=== PATIENT | female | born 1940 | race Caucasian/White ===

== ENCOUNTER → 2017-01-02 | Outpatient (CLI) | payer MEDICARE, OTHER ==
[~2017-01-02] MED LIST: CARDI-OMEGA1000 MG PO; CARDURA 2MG2 MG PO; CARDURA4 MG PO; DOXAZOCIN; DYAZIDE 25 MG-31 CAP PO; FLONASE NASAL S16 GM NS; HALCION0.25 MG PO; K-DUR 2020 MEQ PO; LIPITOR 10MG10 MG PO; LOFIBRA54 MG PO; LOPRESSOR 550 MG/TAB PO; LOPRESSOR PO; LOPRESSOR100 MG PO; MAXZIDE-25MG TA1 TAB PO; MUCINEX D1 TER PO; PLAVIX 75MG TAB75 MG PO; SYNTHROID0.1 MG/TAB PO; SYNTHROID0.137 MG PO; TRIAMTERENE/HCT1 CAP PO; ZITHROMAX Z PA250 MG PO; ZITHROMAX500 M2 PO; ZOCOR 20MG20 MG PO
== END ==
LOC: COL.RAD 10:15 → EDBD 10:30 → COL.RAD 10:30
DX: M47.27 Other spondylosis with radiculopathy, lumbosacral region (principal); M43.17 Spondylolisthesis, lumbosacral region; M48.07 Spinal stenosis, lumbosacral region; M46.87 Other specified inflammatory spondylopathies, lumbosacral region

== ENCOUNTER 2018-02-18 14:26 | Inpatient (IN) | payer MEDICARE, OTHER ==
[~2018-02-18] VITALS: Ht 155 cm; Wt 69.9 kg
[2018-04-06] VITALS (12 sets, daily range): BP systolic 122–170; BP diastolic 59–84; PULSE 61–81; TEMP 97.4–98.2
[2018-04-06] MEDS ORDERED: NEURONTIN600 MG/TAB PO (05:37)
[2018-04-06] MEDS ORDERED: ASPI325T6 PO (06:59)
[2018-04-06] MEDS ORDERED: ROXICODONE 55 MG/TAB PO (06:59)
--- NOTE | 2018-04-06 09:49 | NUR ---
PATIENT TO ROOM 330 PER BED WITH JUDD ALTAMIRANO PACU GIVING REPORT @ [id number]. PT A/O X3, LUNGS COARSE WITH WET COUGH. BOWEL SOUNDS PRESENT. SCDS AND TEDS BILATERALLY. DRESSING TO RIGHT KNEE CDI WITH AQUACEL OVER INCISION. PT DENIES PAIN. IV TO PUMP TO LEFT HAND.
--- NOTE | 2018-04-06 11:55 | NUR ---
First visit from the adobe cq developer. No needs right now.
--- NOTE | 2018-04-06 13:06 | NUR ---
pt voided on bed hood 200 mls. pt not able to stand yet.
--- NOTE | 2018-04-06 18:36 | NUR ---
REPORT TO ALONDRA ALTAMIRANO.
--- NOTE | 2018-04-06 21:45 | NUR ---
Assessment completed. Patient is A&O x 4. VSS, on 4 liters of supplemental O2 via nasal cannula. Ranulfo wrap dressing to left knee is CDI with an ice pack maintained. Pedal pulses intact. BLE scds/RLE ami hose on. Encouraged ankle pumps. Patient has audible expiratory wheezing heard and fine crackles in the bases of the lungs, reported by day shift RN patient sounded the same on admission before surgery. Encouraged use of IS and patient was able to demonstrate use. Tolerating diet with no c/o nausea. Voiding with no difficulities. Up with assist x 2 with walker and gait belt to the edge of the bed to dangle. Denies any concerns or needs, call light is within reach.
[2018-04-07 03:03] VITALS: BP 152/64; PULSE 76; TEMP 101.6; TEMP 98.2; TEMP 99
[2018-04-07 05:57] LABS: HEMOGLOBIN 10.9 g/dl (12.5-16.0)
[2018-04-07 05:59] LABS: HEMATOCRIT 31.8 % (37.0-47.0)
[2018-04-07 08:22] VITALS: BP 101/51; PULSE 73; TEMP 98.8
[2018-04-07 11:45] VITALS: BP 122/46; PULSE 56; TEMP 98.7
--- NOTE | 2018-04-07 15:44 | NUR ---
SW attempted to met with patient multiple times today. She was in the bathroom, in therapy, or asleep. SW will attempt again.
[2018-04-07 16:02] VITALS: BP 143/62; PULSE 58; TEMP 98.7
--- NOTE | 2018-04-07 19:30 | NUR ---
Patient up to bathroom with TAX MANAGER CPA where she is continent of bladder. Patient ambulates with walker and gait belt and moves at a slow, steady pace. Patient requests PRN pain medication for pain in her left knee rated 5/10. Patient is alert and oriented, answers questions appropriately. Aquacel to left knee is CDI. Patient denies further needs at this time, call light within reach.
[2018-04-07 20:33] VITALS: BP 142/53; PULSE 68; TEMP 98.9
[2018-04-07 23:36] VITALS: BP 129/54; PULSE 60; TEMP 99.1
[2018-04-08 03:36] VITALS: BP 139/55; PULSE 62; TEMP 98.4
--- NOTE | 2018-04-08 05:49 | NUR ---
Patient rested well overnight. PRN pain medication administered at shift change has controlled pain overnight. Patient up with 1x assist and walker and ambulated to bathroom where she was continent of bladder. Left knee aquacel continues to be CDI. Patient denies further needs at this time, call light within reach.
[2018-04-08 06:06] LABS: HEMOGLOBIN 10.7 g/dl (12.5-16.0)
[2018-04-08 06:11] LABS: HEMATOCRIT 32.4 % (37.0-47.0)
--- NOTE | 2018-04-08 07:06 | NUR ---
Report from Flores NORMAN.
[2018-04-08 07:24] VITALS: BP 130/46; PULSE 61; TEMP 99
--- NOTE | 2018-04-08 08:35 | NUR ---
PT SITTING UP IN BED EATING BREAKFAST. DRESSING TO LEFT KNEE CDI. PT DENIES PAIN,N/V AND NO OTHER DISTRESS NOTED. LUNGS COARSE WITH COUGHING. ENCOURAGED IS AND PT IS TRYING TO BE COMPLIANT. PLAN ON POSSIBLE REHAB AT [facility] 04/09. MEDICAL ASSISTANT SECRETARY TO SET UP TRANSFER.
--- NOTE | 2018-04-08 09:58 | NUR ---
BENNIE met with patient to discuss discharge planning. Patient lives with her Del in [place]. Her PCP is Dr Richards and she obtains her medications from [facility]. Patient and family would like her to go to [facility]. BENNIE obtained a choice form and made the referral to Jossie at [facility]. BENNIE will continue to follow.
[2018-04-08 11:28] VITALS: BP 123/49; PULSE 63; TEMP 98.7
--- NOTE | 2018-04-08 12:22 | NUR ---
Follow up visit from the medical surgery nurse. No needs right now.
[2018-04-08 15:54] VITALS: BP 133/46; PULSE 68; TEMP 98.9
--- NOTE | 2018-04-08 18:54 | NUR ---
report to Lorrie ALTAMIRANO.
[2018-04-08 20:30] VITALS: BP 125/51; PULSE 66; TEMP 98.6
--- NOTE | 2018-04-08 21:00 | NUR ---
Assessment completed. Patient is A&O x 4, sitting in the chair at this time watching television. VSS, on room air. Reports minimal pain at this time, denies needing any pain medication. Aquacell dressing to left knee is CDI with a fresh ice pack applied to knee. Mild swelling noted in the left upper thigh. Pedal pulses intact. BLE ami hose on. Voiding with no difficulities. Reports she has not had a bowel movement, prn MOM given. Patient did not eat much for a meal this evening stated she was not hungry. INT to left hand. Will ambulate in the hallway this evening with staff. Call light is within reach.
--- NOTE | 2018-04-08 21:30 | NUR ---
Patient ambulated 100 [address] in [address] hallway with assist x 1 with walker and gait belt at this time, gait steady. Assisted with repositioning in bed and elevated left ankle with pillow and an ice pack to left knee. Denies any concerns.
[2018-04-09 00:53] VITALS: BP 131/54; PULSE 57; TEMP 98.1
[2018-04-09 05:05] VITALS: BP 130/78; PULSE 68; TEMP 98.2
[2018-04-09 06:04] LABS: HEMATOCRIT 30.4 % (37.0-47.0); HEMOGLOBIN 10.6 g/dl (12.5-16.0)
--- NOTE | 2018-04-09 06:32 | NUR ---
Patient has rested well through the night. VSS. Reports minimal pain this morning. Aquacell dressing to left knee remains CDI with an ice pack maitnained to knee. Up with standby assist through the night, gait remains steady. Denies any concerns or needs.
--- NOTE | 2018-04-09 06:51 | NUR ---
Report from Lorrie ALTAMIRANO.
[2018-04-09 08:17] VITALS: BP 139/55; PULSE 81; TEMP 98.2
--- NOTE | 2018-04-09 09:28 | NUR ---
PT UP TO RECLINER FOR BREAKFST. OUT TO [facility] FOR THERAPY. PLAN ON DISCHARGE TO [facility] FOR REHAB.
--- NOTE | 2018-04-09 09:47 | NUR ---
SW presented IM and verbally discussed the contents with the patient. Patient was agreeable and signed the form. Original placed in the chart. SW asked patient if there was anyone she would like contacted about her dc today. She reports they already know. Patient is discharging today to [facility] via wheelchair van at 11am for a medicare snf stay.
--- NOTE | 2018-04-09 12:15 | NUR ---
PT TO [facility] AT THIS TIME.
--- NOTE | 2018-04-09 12:16 | NUR ---
REPORT TO TRISTIN ALTAMIRANO @ [facility].
== END 2018-04-09 12:16 | DRG 470 ==
LOC: JCC 04-06 05:11 → EDBD 04-06 07:30 → JCC 04-06 07:30
PROVIDERS: ADMIT Orthopaedic Surgery Sports Medicine
PROC: 0SRD0J9 Replacement of Left Knee Joint with Synthetic Substitute, Cemented, Open Approach (ICD-10-PCS; principal; 2018-04-06 08:30)
DX: M17.12 Unilateral primary osteoarthritis, left knee (principal); I10 Essential (primary) hypertension; Z86.73 Personal history of transient ischemic attack (TIA), and cerebral infarction without residual deficits; E78.5 Hyperlipidemia, unspecified
CPT/HCPCS: A9284; C1713; C1776; J0690; J2250; J2704; J3010; J7120

== ENCOUNTER 2018-03-26 15:24 | Outpatient (RCR) | payer MEDICARE, OTHER ==
[2018-04-06] MEDS ORDERED: NEURONTIN600 MG/TAB PO (05:37)
[2018-04-06] MEDS ORDERED: ROXICODONE 55 MG/TAB PO (06:59)
[2018-04-06] MEDS ORDERED: ASPI325T6 PO (06:59)
== END 2018-06-24 | disposition home or self-care (01) ==
LOC: MKS.ESL.PT
DX: Z01.818 Encounter for other preprocedural examination (principal); M17.12 Unilateral primary osteoarthritis, left knee
CPT/HCPCS: G8978-GP; G8979-GP; G8980-GP

== ENCOUNTER → 2018-03-26 | Outpatient (CLI) | payer MEDICARE, OTHER | LOC: COL.LAB 11:28 | DX: Z01.812 Encounter for preprocedural laboratory examination (principal) ==

== ENCOUNTER 2018-05-29 12:45 | Outpatient (RCR) | payer MEDICARE, OTHER ==
[~2018-05-29 12:45] MED LIST changes: +ASPI325T6 PO; +NEURONTIN600 MG/TAB PO; +ROXICODONE 55 MG/TAB PO
== END 2018-07-19 | disposition home or self-care (01) ==
LOC: MKS.ESL.PT
DX: Z47.1 Aftercare following joint replacement surgery (principal); Z96.652 Presence of left artificial knee joint; Z79.899 Other long term (current) drug therapy
CPT/HCPCS: G8978-GP; G8979-GP

== ENCOUNTER 2019-11-03 13:07 | Inpatient (IN) | payer MEDICARE, OTHER ==
[~2019-11-03] VITALS: Ht 154.9 cm; Wt 70.0 kg
[~2019-11-03 13:07] MED LIST changes: +CARDURA 8MG TAB8 MG PO; -CARDURA4 MG PO; +K-DUR20 MEQ PO
[2019-12-21] MEDS ORDERED: NORVASC 5MG5 MG/TAB PO (09:44)
[2019-12-23] VITALS (11 sets, daily range): BP systolic 124–156; BP diastolic 66–85; PULSE 58–94; TEMP 98.2–98.9
[2019-12-23] MEDS ORDERED: CIPRO 500MG TA500 MG PO (06:09)
[2019-12-23] MEDS ORDERED: PACERONE400 MG PO (06:10)
--- NOTE | 2019-12-23 09:00 | NUR ---
PATIENT IS ORIENTED X3, DROWSY POST OP. VSS. PATIENT WAS CARDIOVERTED 12/20 AND HAS A HX OF A-FIB. PATIENT IS CURRENTLY SR IN THE 60-70'S IN PACU. NO C/O PAIN. RTK DRESSING IS CD&I WITH BULKY ACEWRAP AND ICE PACK INPLACE. TEDS TO LLE. SCD'S TO BLE. PATIENT IS ABLE TO SL WIGGLES TOES TO BLE. HEAD TO TOE ASSESSMENT COMPLETE. NO C/O N/V. IV FLUIDS INFUSING VIA PUMP INTO RIGHT FORARM. LIQUIDS AT BEDSIDE. DAUGHTER AT BEDSIDE. CALL LIGHT IN REACH.
--- NOTE | 2019-12-23 13:06 | NUR ---
Initial visit; Patient experiencing pain, Steam Drier Operator introduced herself and let patient know [facility] is available to her while she is here at [facility]. Patient graciously thanked Steam Drier Operator.
--- NOTE | 2019-12-23 16:20 | NUR ---
Adjunct History Instructor met with the patient and the patient's daughter, Sita to complete initial intake. The patient lives in [place] with her Jair The patient has a cane and walker. Prior to surgery she was independent. The patient's PCP is Dr. Richards and patient receives medications from [facility]. The patient states that medications can get expensive. SW gave the patient a GoodRx card. The patient does not have advanced directives and was not interested in DPOA-HC form. Last time the patient had a knee replacement she went to [facility]. She wanted to send referrals again in case she needed rehab. The first choice is [facility] and second choice is [facility]. Referrals sent.
--- NOTE | 2019-12-23 21:00 | NUR ---
Initial shift assessment done- has been resting for the past couple hours-- states right knee pain 11/07 after getting up to [facility] and taking a short walk to the door and back- [place] given as ordered. Left leg w/REHANA/SCD on-- right leg wrapped with vijaya from toe to thigh-dry and intact,,ice to knee. Using IS -up to 500 at this time, o2 at 3L/nc, Tele on-remains in sinus. LR at 75cc/hr- will dc when taking po well. States a little nauseated after her walk- will see if it is relieved when back to bed
[2019-12-24 03:50] VITALS: BP 141/72; PULSE 65; TEMP 99.5
--- NOTE | 2019-12-24 04:21 | NUR ---
Up to BSC with assist/walker-voiding without problems- back to bed- states pain 09/07-given [place] 2 tabs at this time, right knee vijaya wrap remains dry and intact, ice to knee. Tele on- remains sinus. States still gets a little nauseated whenever she gets up-resolves fairly quickly. temp 99.5-- did some C&DB, using IS--up to 750-1000 at this time
[2019-12-24 06:46] LABS: HEMOGLOBIN 11.7 g/dl (12.5-16.0)
[2019-12-24 06:52] LABS: HEMATOCRIT 33.6 % (37.0-47.0)
[2019-12-24 08:01] VITALS: BP 150/58; PULSE 65; TEMP 98.8
--- NOTE | 2019-12-24 08:40 | NUR ---
PT SITTING UP IN BED. SARY CIFUENTES FOR ORTHO IN TO SEE PT THIS AM. DRESSING CHANGE COMPLETE. DRESSING TO RIGHT KNEE CDI. VSS, AM MEDS AND PO PAIN MEDS GIVEN. PT VSS, TEDS AND SCDS PLACED PER ORDERS. PT TOLERATING WELL. PT WAITING FOR PLACEMENT SCREENING @[facility] OR [facility]. SUPERVISOR FOOD CHECKERS AND CASHIERS FACILATATING REVIEW.
[2019-12-24 11:18] VITALS: BP 132/60; PULSE 63; TEMP 98.3
--- NOTE | 2019-12-24 11:30 | NUR ---
Torrey from [facility] reports they can accept the patient for post acute rehab. Sheryl from [facility] reports they can accept the patient for post acute rehab.
--- NOTE | 2019-12-24 16:28 | NUR ---
Sound Designer met with the patient and the patient's daughter to review the discharge plan of post acute rehab at discharge. The patient decided to make [facility] her first choice. BENNIE faxed updates to [facility].
[2019-12-24 17:27] VITALS: BP 116/69; PULSE 76; TEMP 98
--- NOTE | 2019-12-24 20:00 | NUR ---
Pt. sitting up in bed at this time. Pt. is A&OX3, assessment complete. INTto rt. forearm patent. Dressing to rt. knee CDI. Pt. reports pain at a 5 on pain scale at this time. Pain meds given per orders. Pt. denies further needs, call light within reach.
[2019-12-24 20:06] VITALS: BP 135/59; PULSE 63; TEMP 98
[2019-12-25 00:33] VITALS: BP 113/60; PULSE 63; TEMP 97.8
[2019-12-25 04:20] VITALS: BP 119/49; PULSE 64; TEMP 98.5
[2019-12-25 07:20] LABS: HEMOGLOBIN 11.1 g/dl (12.5-16.0)
[2019-12-25 07:49] LABS: HEMATOCRIT 32.6 % (37.0-47.0)
--- NOTE | 2019-12-25 09:10 | NUR ---
RA SPO2 88% PLACED ON 1 LPM NC 91%
--- NOTE | 2019-12-25 09:11 | NUR ---
Lying in bed with eyes open. Alert and oriented x3. Denies pain at this time but explains that the pain increased with activity. Says that she has a hard time moving her right leg. Dressing to right knee CDI. Patient denies any needs or concerns at this time.
[2019-12-25 09:19] VITALS: BP 140/63; PULSE 59; TEMP 98.4
[2019-12-25 12:15] VITALS: BP 118/64; PULSE 63; TEMP 98.5
--- NOTE | 2019-12-25 12:45 | NUR ---
Sitting up in bed, daughter in room with the patient. Rates pain 4/10 in right knee at this time. Denies need for pain medication. Explain to call when needs pain med. Patient denies additional needs at this time.
--- NOTE | 2019-12-25 15:38 | NUR ---
Patient lying in bed with eyes open, daughter at bedside. Daughter questions reason patient is sleepy. Explain that she has had anesthesia, which can take a little bit longer to get out of our system when we age, and also pain medication, last dose given at 0544. Explain body healing process as well. Explain that at supper we can get her up to walk and also sit up in chair for dinner. Patient has had decreased appetite as well. No BM since prior to coming to hospital. MOM administered as prescribed. Patient also eating prunes that were brought at breakfast. Rates pain at this time a 3-4 when moving. Denies need for pain medication. Patient denies any further needs at this time.
--- NOTE | 2019-12-25 16:35 | NUR ---
Assist patient up to BSC. Patient voids. Ambulates around bed to recliner and sits in recliner chair. Assisted to comfortable position. Fresh ice pack applied to right knee. Daughter remains in room with patient. Patient denies any additional needs at this time.
--- NOTE | 2019-12-25 17:26 | NUR ---
[facility]. Nurse confirmed negative COVID test. Nurse did report that they had to give patient Oxygen today. Jorge contacted [facility] about discharge tomorrow, and faxed over updates and negative COVID screen results.
[2019-12-25 17:47] VITALS: BP 119/45; PULSE 63; TEMP 99.2
--- NOTE | 2019-12-25 17:52 | NUR ---
Sitting up in recliner watching TV and talking with daughter. Pain okay at this time. Continues to have ice pack to right knee. Denies any additional needs or concerns at this time.
[2019-12-25 20:13] VITALS: BP 126/50; PULSE 65; TEMP 99.3
--- NOTE | 2019-12-25 20:45 | NUR ---
Pt. sitting up in chair at this time. Pt. is A&OX3, assessment complete. INT to rt. forearm patent. Dressing to rt. knee CDI. Pt. denies pain at this time. Pt. assisted with standby assist to the bathroom and then to bed. Pt. repositioned for comfort. Pt. denies further needs.
[2019-12-26 03:23] VITALS: BP 135/53; PULSE 68; TEMP 99.7
[2019-12-26 06:34] LABS: HEMOGLOBIN 10.1 g/dl (12.5-16.0)
[2019-12-26 06:51] LABS: HEMATOCRIT 30.2 % (37.0-47.0)
[2019-12-26 08:00] VITALS: BP 125/54; PULSE 73; TEMP 99.5
--- NOTE | 2019-12-26 08:31 | NUR ---
Lying in bed with eyes open. Alert and oriented x3. Denies pain at rest, explains with activity the pain can go up to 7-8/10 and is sore. Patient is on oxygen at 3L/NC, patient says that she is not normally on oxygen at home. Encouraged patient to continue to cough and deep breath and use incentive spirometer. Dressing to right knee CDI. Will assist patient up to chair at this time. Denies additional needs or concerns.
--- NOTE | 2019-12-26 10:47 | NUR ---
Contacted patient son and provided update that the patient would be getting picked up by [facility] around 1300 today. Son verbalizes understanding.
[2019-12-26 10:48] VITALS: BP 125/54; PULSE 73; TEMP 99.5
--- NOTE | 2019-12-26 11:08 | NUR ---
Report called to Lesvia nurse at [facility].
[2019-12-26 12:31] VITALS: BP 131/54; PULSE 56; TEMP 98.9
--- NOTE | 2019-12-26 12:36 | NUR ---
BENNIE informed by nurse that patient will be DC'ing on this day. BENNIE contacted [facility] for transport time of 1:00pm 12-26-2019. Informed [facility] that patient will need wheelchair and O2 brought when assisting. DC documenation faxed to [facility]. Nothing further.
--- NOTE | 2019-12-26 13:35 | NUR ---
[facility] here to pick patient up. Patient assisted out to [facility] van via wheel chair with all personal belongings.
== END 2019-12-26 13:44 | DRG 470 ==
LOC: JCC 12-23 05:21
PROVIDERS: ADMIT Orthopaedic Surgery Sports Medicine
PROC: 0SRC0J9 Replacement of Right Knee Joint with Synthetic Substitute, Cemented, Open Approach (ICD-10-PCS; principal; 2019-12-23 07:30)
DX: M17.11 Unilateral primary osteoarthritis, right knee (principal); I69.351 Hemiplegia and hemiparesis following cerebral infarction affecting right dominant side; I10 Essential (primary) hypertension; I48.91 Unspecified atrial fibrillation; E78.5 Hyperlipidemia, unspecified; K21.9 Gastro-esophageal reflux disease without esophagitis; E03.9 Hypothyroidism, unspecified; Z96.652 Presence of left artificial knee joint; Z88.0 Allergy status to penicillin; Z88.2 Allergy status to sulfonamides
CPT/HCPCS: A9284; C1776; J0690; J2250; J2405; J2704; J7120

== ENCOUNTER 2019-12-17 13:02 | Outpatient (RCR) | payer MEDICARE, OTHER ==
[2019-12-21] MEDS ORDERED: NORVASC 5MG5 MG/TAB PO (09:44)
[2019-12-23] MEDS ORDERED: CIPRO 500MG TA500 MG PO (06:09)
[2019-12-23] MEDS ORDERED: PACERONE400 MG PO (06:10)
== END 2020-01-12 14:18 | disposition home or self-care (01) ==
LOC: MKS.ESL.PT 13:02
DX: M25.561 Pain in right knee (principal); Z96.651 Presence of right artificial knee joint

== ENCOUNTER 2019-12-21 09:23 | Day surgery (SDC) | payer MEDICARE, OTHER ==
[~2019-12-21] VITALS: Ht 154.9 cm; Wt 72.6 kg
[2019-12-21] MEDS ORDERED: NORVASC 5MG5 MG/TAB PO (09:44)
[2019-12-21 10:18] VITALS: BP 151/82; PULSE 88; TEMP 97.2
[2019-12-21 10:35] LABS: POTASSIUM 3.5 mmol/L (3.4-5.0)
[2019-12-21 10:53] LABS: INR 1.1 (0.8-3.0); PROTHROMBIN TIME 11.8 SECONDS (9.7-12.8)
[2019-12-21 11:10] LABS: THYROID STIMULATING HORMONE 0.558 uIU/mL (0.465-4.680)
--- NOTE | 2019-12-21 12:42 | NUR ---
Report received from Arlet ALTAMIRANO. Pt is awake and alert, pwd, conversant with son at bs. no complaints at this time
[2019-12-21 12:46] VITALS: BP 143/74; PULSE 73
[2019-12-21 12:50] VITALS: BP 117/79; PULSE 78
[2019-12-21 13:05] VITALS: BP 154/91; PULSE 76
[2019-12-21 13:20] VITALS: BP 154/89; PULSE 67
[2019-12-21 13:35] VITALS: BP 156/80; PULSE 63
--- NOTE | 2019-12-21 13:48 | NUR ---
Pt is ready for departure. I have reviewed dc, fu and rx instructions with patient. I did call Dr. Diaz to clarify fu and rx plan. Dr. Diaz sent pt out with handwritten rx and plans to fu in 2 weeks. pt is cleared for knee surgery on .
== END 2019-12-21 13:48 | disposition home or self-care (01) ==
LOC: COL.CAR 09:23
PROVIDERS: Internal Medicine Interventional Cardiology
DX: I48.0 Paroxysmal atrial fibrillation (principal); I48.19 Other persistent atrial fibrillation; I08.1 Rheumatic disorders of both mitral and tricuspid valves; I42.0 Dilated cardiomyopathy; I10 Essential (primary) hypertension; R06.02 Shortness of breath; E03.9 Hypothyroidism, unspecified; E78.5 Hyperlipidemia, unspecified; Z79.899 Other long term (current) drug therapy; Z86.73 Personal history of transient ischemic attack (TIA), and cerebral infarction without residual deficits; Z88.0 Allergy status to penicillin; Z88.2 Allergy status to sulfonamides; Z88.8 Allergy status to other drugs, medicaments and biological substances
CPT/HCPCS: J2704; J7030

== ENCOUNTER 2020-01-31 14:00 | Outpatient (RCR) | payer MEDICARE, OTHER ==
[~2020-01-31 14:00] MED LIST changes: +CIPRO 500MG TA500 MG PO; +NORVASC 5MG5 MG/TAB PO; +PACERONE400 MG PO
== END 2020-01-31 15:47 | disposition home or self-care (01) ==
LOC: MKS.ESL.PT 14:00
DX: Z96.651 Presence of right artificial knee joint (principal)

== ENCOUNTER 2020-12-01 15:26 | Emergency (ER) | payer MEDICARE, OTHER ==
[~2020-12-01] VITALS: Ht 154.9 cm; Wt 72.7 kg
[~2020-12-01 15:26] MED LIST changes: +NORVASC 10MG10 MG PO; -NORVASC 5MG5 MG/TAB PO
[2020-12-01 19:15] VITALS: BP 178/64; PULSE 88; TEMP 99
== END 2020-12-01 19:20 | disposition home or self-care (01) ==
LOC: COL.ER 15:26
DX: U07.1 COVID-19 (principal); I10 Essential (primary) hypertension; I48.91 Unspecified atrial fibrillation; E78.00 Pure hypercholesterolemia, unspecified; Z86.73 Personal history of transient ischemic attack (TIA), and cerebral infarction without residual deficits; Z79.02 Long term (current) use of antithrombotics/antiplatelets; Z79.899 Other long term (current) drug therapy
CPT/HCPCS: Q0244

== ENCOUNTER 2021-02-21 08:09 | Day surgery (SDC) | payer MEDICARE, OTHER ==
[~2021-02-21] VITALS: Ht 155 cm; Wt 72.1 kg
[2021-02-21 09:13] LABS: INR 1.7 (0.8-3.0); PROTHROMBIN TIME 19.4 SECONDS (9.7-12.8)
[2021-02-21] MEDS ORDERED: TOPROL XL 25MG25 MG PO (09:48)
[2021-02-21] MEDS ORDERED: CARDURA XL8 MG PO (09:50)
[2021-02-21] MEDS ORDERED: NEURONTIN600 MG/TAB PO (09:52)
[2021-02-21] MEDS ORDERED: ELIQUIS 5MG PO (10:06)
[2021-02-21] MEDS ORDERED: LIPITOR 10MG10 MG PO (10:07)
[2021-02-21 10:24] VITALS: BP 145/94; PULSE 71; TEMP 98.3
[2021-02-21 11:10] VITALS: BP 116/72; PULSE 60
[2021-02-21 11:15] VITALS: BP 130/79; PULSE 49
[2021-02-21 11:30] VITALS: BP 137/84; PULSE 58
[2021-02-21 11:45] VITALS: BP 143/82; PULSE 65
--- NOTE | 2021-02-21 12:05 | NUR ---
Discharge instructions given to pt.pt verbalizes understanding.INT removed,catheter tip intact.Pt escorted out via wheelchair.
[2021-02-21 17:55] LABS: POTASSIUM 3.7 mmol/L (3.5-4.5)
[2021-02-21 18:22] LABS: THYROID STIMULATING HORMONE 0.921 uIU/mL (0.350-4.940)
== END 2021-02-21 12:09 ==
LOC: COL.CAR 08:09
PROVIDERS: Internal Medicine Cardiovascular Disease
DX: I48.0 Paroxysmal atrial fibrillation (principal); I10 Essential (primary) hypertension; E78.5 Hyperlipidemia, unspecified; E03.9 Hypothyroidism, unspecified; Z86.73 Personal history of transient ischemic attack (TIA), and cerebral infarction without residual deficits; Z79.01 Long term (current) use of anticoagulants; Z79.890 Hormone replacement therapy; Z79.899 Other long term (current) drug therapy
CPT/HCPCS: J7030

== ENCOUNTER → 2021-04-09 | Outpatient (CLI) | payer MEDICARE, OTHER ==
[~2021-04-09] MED LIST changes: +CARDURA XL8 MG PO; +ELIQUIS 5MG PO; +TOPROL XL 25MG25 MG PO
== END | disposition still patient (30) ==
LOC: COL.RAD 12:00
DX: R31.9 Hematuria, unspecified (principal); W19.XXXA Unspecified fall, initial encounter

== ENCOUNTER → 2021-04-09 | Outpatient (CLI) | payer MEDICARE, OTHER ==
[2021-04-09 13:28] LABS: ALBUMIN 3.9 gm/dL (3.4-4.8); BILIRUBIN,TOTAL 0.9 mg/dL (0.2-1.2); CALCIUM 9.2 mg/dL (8.4-10.2); CREATININE, serum 1.28 mg/dL (0.57-1.11); POTASSIUM 4.3 mmol/L (3.5-4.5); TOTAL PROTEIN 6.6 gm/dL (6.2-8.1)
== END ==
LOC: COL.LAB 13:24
DX: Z04.3 Encounter for examination and observation following other accident (principal); W19.XXXA Unspecified fall, initial encounter
CPT/HCPCS: Q9967